=== PATIENT | male | born 1955 | race Caucasian/White ===

== ENCOUNTER 2017-12-02 09:25 | Inpatient (IN) | payer BC ==
[2017-12-02 09:31] VITALS: BMI 34.7
[2017-12-02 10:33] LABS: BASO % 0.7 % (0.0-2.0); EOS # 0.1 K/uL (0.0-0.7); EOS % 2.4 % (0.0-4.0); HEMOGLOBIN 15.3 g/dL (12.0-18.0); LYMPH % 16.7 % (20.0-40.0); MEAN CORPUSCULAR HEMOGLOBIN 31.9 pg (27.0-31.0); MEAN CORPUSCULAR HGB CONC 34.7 g/dL (33.0-37.0); MEAN PLATELET VOLUME 7.7 fl (7.2-11.7); MONO # 0.3 K/uL (0.0-0.8); MONO % 5.4 % (0.0-10.0); NEUT # 4.5 K/uL (1.8-7.0); NEUT % 74.8 % (50.0-75.0); NRBC % 0.2 % (0.0-0.0); RBC 4.8 Mil/uL (4.40-5.90); RED CELL DISTRIBUTION WIDTH 12.6 % (11.5-14.5); WHITE BLOOD COUNT 6.1 K/uL (4.8-10.8)
--- NOTE | 2017-12-02 10:38 | ED PDOC ---
HPI: General Adult Time Seen by Provider: 12/02/17 09:43 Chief Complaint (Nursing): Dizziness/Lightheaded Chief Complaint (Provider): Dizziness, Vomiting History Per: Patient History/Exam Limitations: no limitations Onset/Duration Of Symptoms: Hrs (x 6) Current Symptoms Are (Timing): Still Present Additional Complaint(s): Howard is a 62 y/o male with a history of vertigo, hypertension, and CAD who presents to the ED complaining of dizziness and vomiting that started at 4am today. Patient reports continuous dizziness which he describes as a spinning sensation that is worse when moving his head, getting up, and walking. He denies passing out, chest pain, palpitations, or headache. Patient also complains of nausea and vomiting "phlegm" a few times. He denies numbness, weakness, speech change, or problems with gait. PMD: Yaya Bernardo NIHSS Stroke Scale - Date/Time Evaluation Performed Date Performed: 12/02/17 When Was NIHSS Performed: Baseline - How Severe is the Stroke Level of Consciousness: 0=Alert LOC to Questions: 0=Both comments correct LOC to commands: 0=Obeys both correctly Best Gaze: 0=Normal Visual: 0=No visual loss Facial: 0=Normal Motor Arm - Left: 0=No drift Motor Arm - Right: 0=No drift Motor Leg - Left: 0=No drift Motor Leg - Right: 0=No drift Limb Ataxia: 0=Absent Sensory: 0=Normal Best Language: 0=No aphasia Dysarthia: 0=Normal articulation Extinction & Inattention (Neglect): 0=Normal, no object Score: 0 rTPA Inclusion/Exclusion - Refusal of Treatment Patient Refused Treatment: No - Inclusion Criteria for Altepase Patient is 18 years or Older: Yes The Clinical Diagnosis of Ischemic Stroke That is Causing a Potentially Disabling Neurological Deficit: No Time of Onset is Well Established to be Less Than 270 Minute Before Treatment Would Begin: No Risk/Benefit Discussed With Patient/Family Member Present: No Past Medical History Reviewed: Historical Data, Nursing Documentation, Vital Signs Vital Signs: Last Vital Signs Temp 97.8 F 12/02/17 15:18 Pulse 55 L 12/02/17 15:18 Resp 18 12/02/17 15:18 BP 132/71 12/02/17 15:18 Pulse Ox 100 12/02/17 15:18 - Medical History PMH: HTN, Hypercholesterolemia, Hypothyroidism Denies: Chronic Kidney Disease Other PMH: Vertigo - Surgical History Surgical History: Coronary Stent (x 2) Denies: Pacemaker - Family History Family History: States: Unknown Family Hx - Immunization History Hx Tetanus Toxoid Vaccination: No Hx Influenza Vaccination: No Hx Pneumococcal Vaccination: No - Home Medications Home Medications: Ambulatory Orders Medication Instructions Recorded Amlodipine Bes/Olmesartan Med 1 tab PO DAILY 12/02/17 [William 5-40 mg Tablet] Aspirin [Ecotrin] 81 mg PO DAILY 12/02/17 Atorvastatin [Lipitor] 20 mg PO HS 12/02/17 Icosapent Ethyl [Vascepa] 1 gm PO Q12 12/02/17 Levothyroxine [Synthroid] 150 mcg PO DAILY 12/02/17 Nebivolol [Bystolic] 10 mg PO DAILY 12/02/17 - Allergies Allergies/Adverse Reactions: Allergies Allergy/AdvReac Type Severity Reaction Status Date / Time No Known Allergies Allergy Verified 07/27/14 10:57 Review of Systems ROS Statement: Except As Marked, All Systems Reviewed And Found Negative ENT: Positive for: Other (congested sensation in left ear, (-) tenitis). Negative for: Ear Pain Cardiovascular: Negative for: Chest Pain, Palpitations Gastrointestinal: Positive for: Nausea, Vomiting Neurological: Positive for: Dizziness. Negative for: Weakness, Numbness, Incoordination, Change in Speech, Headache, Other (loss of consciousness) Physical Exam - Reviewed Nursing Documentation Reviewed: Yes Vital Signs Reviewed: Yes - Physical Exam Appears: Positive for: Uncomfortable Head Exam: Positive for: ATRAUMATIC, NORMAL INSPECTION, NORMOCEPHALIC Skin: Positive for: Normal Color, Warm, Dry. Negative for: Rash Eye Exam: Positive for: Normal appearance, EOMI, PERRL, Nystagmus ((+) horizontal, (-) vertical) ENT: Positive for: Normal ENT Inspection Neck: Positive for: Normal, Painless ROM, Supple Cardiovascular/Chest: Positive for: Regular Rate, Rhythm. Negative for: Murmur Respiratory: Positive for: Normal Breath Sounds. Negative for: Respiratory Distress Gastrointestinal/Abdominal: Positive for: Normal Exam, Soft. Negative for: Tenderness Back: Positive for: Normal Inspection. Negative for: L CVA Tenderness, R CVA Tenderness, Vertebral Tenderness Extremity: Positive for: Normal ROM. Negative for: Pedal Edema, Deformity Neurologic/Psych: Positive for: Alert, Oriented. Negative for: Motor/Sensory Deficits - Laboratory Results Result Diagrams: 12/02/17 10:24 12/02/17 10:24 - ECG O2 Sat by Pulse Oximetry: 96 (RA) Pulse Ox Interpretation: Normal Medical Decision Making Medical Decision Making: Time: 10:03 Initial Impression: Dizziness; Differentials include but not limited to peripheral vertigo such as BPV, vestibular neuritis, central vertigo such as cerebellar vertigo, CVA less likely Initial Plan: --CT Head w/o Contrast --EKG --BMP --Troponin --CBC --Antivert --Zofran Time: 11:25 CT HEAD FINDINGS: HEMORRHAGE: No intracranial hemorrhage. BRAIN: Good corticomedullary differentiation is seen. Trace diffuse expansion of the ventriculosulcal and cisternal spaces is appreciated with white matter lucency compatible with diffuse cerebral atrophy and chronic microangiopathy. No suspicious extra-axial fluid collection is identified and the midline brain anatomy appears grossly nonfocal as imaged. There is no mass effect throughout. VENTRICLES: Unremarkable. No hydrocephalus. CALVARIUM: Unremarkable. PARANASAL SINUSES: Unremarkable as visualized. No significant inflammatory changes. MASTOID AIR CELLS: Unremarkable as visualized. No inflammatory changes. OTHER FINDINGS: None. IMPRESSION: Minimal age related neuro degenerative changes are appreciated without definite acute intracranial findings by standard CT criteria. Follow-up CT or MRI are available as clinically warranted. Time: 12:24 --Consulted with Dr. Alvarenga, neurologist recreation therapist, who recommends MRI of the brain. Patient will be admitted to [facility] for persistent vertigo to Dr. Figueroa. Scribe Attestation: Documented by Jarvis Foster, acting as a scribe for Dr. Luis Miguel Dwyer MD. Provider Scribe Attestation: All medical record entries made by the Scribe were at my direction and personally dictated by me. I have reviewed the chart and agree that the record accurately reflects my personal performance of the history, physical exam, medical decision making, and the department course for this patient. I have also personally directed, reviewed, and agree with the discharge instructions and disposition. Disposition - Clinical Impression Clinical Impression: Vertigo - Patient ED Disposition Is Patient to be Admitted: Yes Discussed With : Karel Figueroa Doctor Will See Patient In The: Hospital Counseled Patient/Family Regarding: Studies Performed, Diagnosis - Disposition Disposition Time: 12:24 Condition: FAIR - Pt Status Changed To: Hospital Disposition Of: Observation - POA Present On Arrival: None
[2017-12-02 10:41] LABS: BLOOD UREA NITROGEN 23 mg/dl (9-20); GFR AFRICAN-AMERICAN > 60; GFR NON-AFRICAN AMERICAN > 60
--- NOTE | 2017-12-02 11:26 | CT ---
PROCEDURE: CT HEAD WITHOUT CONTRAST. HISTORY: dizziness COMPARISON: None available. TECHNIQUE: Axial computed tomography images were obtained through the head/brain without intravenous contrast. Radiation dose: Total exam DLP = 967.53 mGy-cm. This CT exam was performed using one or more of the following dose reduction techniques: Automated exposure control, adjustment of the mA and/or kV according to patient size, and/or use of iterative reconstruction technique. FINDINGS: HEMORRHAGE: No intracranial hemorrhage. BRAIN: Good corticomedullary differentiation is seen. Trace diffuse expansion of the ventriculosulcal and cisternal spaces is appreciated with white matter lucency compatible with diffuse cerebral atrophy and chronic microangiopathy. No suspicious extra-axial fluid collection is identified and the midline brain anatomy appears grossly nonfocal as imaged. There is no mass effect throughout. VENTRICLES: Unremarkable. No hydrocephalus. CALVARIUM: Unremarkable. PARANASAL SINUSES: Unremarkable as visualized. No significant inflammatory changes. MASTOID AIR CELLS: Unremarkable as visualized. No inflammatory changes. OTHER FINDINGS: None. IMPRESSION: Minimal age related neuro degenerative changes are appreciated without definite acute intracranial findings by standard CT criteria. Follow-up CT or MRI are available as clinically warranted.
--- NOTE | 2017-12-02 11:59 | CARD ---
APPROVED REPORT EKG Measurement Heart [id number] <Conclusion> Sinus bradycardia Otherwise normal ECG
--- NOTE | 2017-12-02 15:29 | MRI ---
PROCEDURE: MRI BRAIN WITHOUT CONTRAST HISTORY: dizziness COMPARISON: Unenhanced head CT 12/02/2017. TECHNIQUE: Multiplanar, multisequence MR images of the brain were obtained without intravenous contrast enhancement. FINDINGS: HEMORRHAGE: None DWI: No evidence of an acute or early subacute infarction. BRAIN PARENCHYMA: A chronic lacune is seen in the right caudate head is superiorly. Good corticomedullary differentiation is seen. Diffuse expansion of the ventriculosulcal and cisternal spaces is appreciated with white matter signal changes compatible with diffuse cerebral atrophy and chronic microangiopathy. No suspicious extra-axial fluid collection is identified and the midline brain anatomy appears grossly nonfocal as imaged. There is no mass effect throughout. VENTRICLES: Unremarkable. No hydrocephalus. CRANIUM: Unremarkable. ORBITS: Grossly unremarkable. PARANASAL SINUSES/MASTOIDS: Clear VASCULAR SYSTEM: Skull base flow voids intact. OTHER FINDINGS: None. IMPRESSION: No definitive acute intracranial findings as discussed above. Mild age related neuro degenerative changes are reiterated as well as a chronic lacune right caudate head as discussed above.
--- NOTE | 2017-12-02 15:36 | MRI ---
PROCEDURE: Magnetic Resonance Angiography Brain HISTORY: dizziness COMPARISON: None available. TECHNIQUE: 3D time of flight MR angiography of the intracranial arteries was performed. Rotating maximum intensity projection images were generated. FINDINGS: INTERNAL CAROTID ARTERIES: Unremarkable. The skull base, petrous, cavernous and supraclinoid segments are bilaterally widely patient. ANTERIOR CEREBRAL ARTERIES: Unremarkable. A1 and A2 segments are widely patent. Smaller distal branches unremarkable, as visualized. MIDDLE CEREBRAL ARTERIES: Unremarkable. M1 and M2 segments are widely patent. Perisylvian branches grossly symmetric. POSTERIOR CIRCULATION: Basilar Artery: Robust blood flow is appreciated including through the bilateral posterior cerebral arteries. Distal Vertebral Arteries: Hypoplastic distal right vertebral artery suspected though congenital absence or even occlusion is not completely excluded but not favored either. Posterior Cerebral Arteries: Unremarkable. Posterior Inferior Cerebellar Arteries: Unremarkable. ANEURYSM/ VASCULAR MALFORMATIONS: None. OTHER FINDINGS: None. 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 Examination otherwise unremarkable.
[2017-12-02] MEDS ORDERED: Pneumococcal 23-Valent Vaccine IM ONE (15:40)
[2017-12-02] MEDS ORDERED: Influenza Vaccine 18yr & older 0.5 ML/45 MCG SYR IM ONE (15:41)
--- NOTE | 2017-12-02 16:03 | MRI ---
PROCEDURE: MR Angiography of the neck without contrast HISTORY: dizziness COMPARISON: None available. TECHNIQUE: 3D [id number] angiography of the neck was performed. Rotating maximum intensity projection images of the cervical carotid and vertebral arteries were generated. The origins of the common carotid arteries were not visualized, which is a limitation inherent to the non-contrast time of flight technique. FINDINGS: RIGHT CAROTID ARTERIES: Common Carotid Artery: Normal. Carotid Bifurcation: Prominent atherosclerotic plaque identified Internal Carotid Artery:70-80 percent stenosis proximal right ICA in a short segment beginning at the origin. External Carotid Artery (proximal branches): Normal. LEFT CAROTID ARTERIES: Common Carotid Artery: Normal. Carotid Bifurcation: Normal. Internal Carotid Artery:Normal. External Carotid Artery (proximal branches): Normal. VERTEBRAL ARTERIES: Right Vertebral Artery: Hypoplastic distal right vertebral artery segment noted to the junction with the basilar artery. Left Vertebral Artery: Normal. OTHER FINDINGS: None. IMPRESSION: High-grade stenosis proximal right ICA suspected in a short segment beginning at the origin. No significant left ICA or bilateral CCA stenosis. Hypoplastic distal right vertebral artery.
--- NOTE | 2017-12-02 19:48 | CP.PCM.CON ---
History of Present Illness - History of Present Illness History of Present Illness: 62 yr old male with new onset dizziness and discomfort since 4 am, who has a history of htn, no pmh of stroke or cardiac disease. is turkish speaking only and his translated. He denies headache, weakness, ataxia. PMH/PSH: as above FH/SH: . no tobacco, no etoh All: nkda on exam: AAOx3. eomi. cn 2-12 normal. nystagmus in all directions. vff. cn 2-12 normal.motor: strength normal. gait: couldnot perform tandem gait. +2 dtr ul and ll bl. no clear ataxia. Past Patient History - Past Medical History & Family History Past Medical History?: Yes - Past Social History Smoking Status: Light Smoker < 10 Cigarettes Daily - CARDIAC Hx Hypercholesterolemia: Yes Hx Hypertension: Yes Hx Pacemaker: No - PULMONARY Hx Respiratory Disorders: No - NEUROLOGICAL Hx Paralysis: No - HEENT Hx HEENT Problems: No - RENAL Hx Chronic Kidney Disease: No - ENDOCRINE/METABOLIC Hx Hypothyroidism: Yes - HEMATOLOGICAL/ONCOLOGICAL Hx Blood Transfusions: No Hx Blood Transfusion Reaction: No - INTEGUMENTARY Hx Dermatological Problems: No - MUSCULOSKELETAL/RHEUMATOLOGICAL Hx Musculoskeletal Disorders: No - GASTROINTESTINAL Hx Gastrointestinal Disorders: No - GENITOURINARY/GYNECOLOGICAL Hx Genitourinary Disorders: No - PSYCHIATRIC Hx Emotional Abuse: No Hx Physical Abuse: No Hx Substance Use: No - SURGICAL HISTORY Hx Coronary Stent: Yes (x 2) - ANESTHESIA Hx Anesthesia Reactions: No Hx Malignant Hyperthermia: No Meds Allergies/Adverse Reactions: Allergies Allergy/AdvReac Type Severity Reaction Status Date / Time No Known Allergies Allergy Verified 07/27/14 10:57 Results - Vital Signs Recent Vital Signs: Last Vital Signs Temp 97.8 F 12/02/17 09:31 Pulse 53 L 12/02/17 09:31 Resp 16 12/02/17 09:31 BP 159/85 H 12/02/17 09:31 Pulse Ox 96 12/02/17 12:26 - Labs Result Diagrams: 12/02/17 10:24 12/02/17 10:24 Labs: Laboratory Results - last 24 hr 12/02/17 12/02/17 12/02/17 10:02 10:24 10:24 WBC 6.1 RBC 4.80 Hgb 15.3 Hct 44.2 MCV 92.0 MCH 31.9 H MCHC 34.7 RDW 12.6 Plt Count 182 MPV 7.7 Neut % (Auto) 74.8 Lymph % (Auto) 16.7 L [place] % (Auto) 5.4 Eos % (Auto) 2.4 Baso % (Auto) 0.7 Neut # (Auto) 4.5 Lymph # (Auto) 1.0 [place] # (Auto) 0.3 Eos # (Auto) 0.1 Baso # (Auto) 0.0 Sodium 140 Potassium 4.0 Chloride 104 Carbon Dioxide 26 Anion Gap 14 BUN 23 H Creatinine 0.8 Est GFR ( Amer) > 60 Est GFR (Non-Af Amer) > 60 POC Glucose (mg/dL) 121 H Random Glucose 142 H Calcium 9.0 Troponin I < 0.0120 - Imaging and Cardiology CT scan - head Status: Image reviewed by me, Report reviewed by me (ct heaD normal, cta normal ) Assessment & Plan - Assessment and Plan (Free Text) Assessment: 62 yr old male with some subtle sign of cerebellar dysfunction, differential of middle ear infection. I will order MRI MRA brain and admit to telemetry.
[2017-12-02] MEDS ORDERED: Iodixanol 320 MG/ML 100 ML BOTTLE IV ONE (21:34)
[2017-12-02] MEDS ORDERED: Sodium Chloride 0.9% 100 ML ONE (21:34)
--- NOTE | 2017-12-02 23:23 | CT ---
EXAM: CT Angiography Head With Intravenous Contrast CLINICAL HISTORY: 62 years old, male; Signs and symptoms; Vertigo and other: Syncope TECHNIQUE: Axial computed tomographic angiography images of the head with intravenous contrast using CT angiography protocol. All CT scans at this facility use one or more dose reduction techniques, viz.: automated exposure control; ma/kV adjustment per patient size (including targeted exams where dose is matched to indication; i.e. head); or iterative reconstruction technique. MIP reconstructed images were created and reviewed. Coronal and sagittal reformatted images were created and reviewed. CONTRAST: 90 mL of [id number] administered intravenously. COMPARISON: No relevant prior studies available. FINDINGS: A dominant left vertebral artery is present. There is hypoplasia /stenosis of the distal right vertebral artery without evidence of occlusion. [place] of the vertebral arteries to form the basilar artery is noted on series 2 image 103. The basilar artery is patent. The posterior cerebral arteries are patent. Right internal carotid artery: No acute findings. Intracranial segment is patent with no significant stenosis. No aneurysm. Right anterior cerebral artery: Unremarkable. No occlusion or significant stenosis. No aneurysm. Right middle cerebral artery: Unremarkable. No occlusion or significant stenosis. No aneurysm. Left internal carotid artery: No acute findings. Intracranial segment is patent with no significant stenosis. No aneurysm. Left anterior cerebral artery: Unremarkable. No occlusion or significant stenosis. No aneurysm. Left middle cerebral artery: Unremarkable. No occlusion or significant stenosis. No aneurysm. IMPRESSION: No acute findings. EXAM: CT Angiography Neck With Intravenous Contrast EXAM DATE/TIME: 12/02/2017 7:11 PM CLINICAL HISTORY: 62 years old, male; Signs and symptoms; Vertigo and other: Syncope TECHNIQUE: Axial computed tomographic angiography images of the neck with intravenous contrast using CT angiography protocol. All CT scans at this facility use one or more dose reduction techniques, viz.: automated exposure control; ma/kV adjustment per patient size (including targeted exams where dose is matched to indication; i.e. head); or iterative reconstruction technique. MIP reconstructed images were created and reviewed. Coronal and sagittal reformatted images were created and reviewed. CONTRAST: 90 mL of [id number] administered intravenously. COMPARISON: CT - HEAD W/O CONTRAST 2017-12-02 11:02 FINDINGS: There are atherosclerotic changes of the aortic arch. A dominant left vertebral artery is present. The right vertebral artery is decreased in caliber with respect to the left however there is no occlusion. Mild stenosis of the very distal right common carotid artery at the bifurcation. High-grade stenosis of a very short, 3 mm segment of the right internal carotid artery at its origin (coronal series 605 image 92). The right internal carotid artery is well-perfused distal to the very short segment of stenosis. No significant stenosis or occlusion of the left common carotid artery or left internal carotid artery. IMPRESSION: Stenosis of the distal right common carotid artery/proximal right internal carotid artery as described in detail above. No vascular occlusion.
[2017-12-03 06:07] LABS: T4 6.85 ug/dl (5.5-11.0)
[2017-12-03] MEDS ORDERED: Levothyroxine 150 MCG TAB PO SCH (06:30)
[2017-12-03] MEDS ORDERED: Enoxaparin 40 mg Syringe SC SCH (09:00)
--- NOTE | 2017-12-03 09:36 | CARD ---
APPROVED REPORT EKG Measurement Heart [id number] AK [id number] <Conclusion> Sinus bradycardia Otherwise normal ECG
--- NOTE | 2017-12-03 10:59 | CP.PCM.PN ---
Subjective - Date & Time of Evaluation Date of Evaluation: 12/03/17 Time of Evaluation: 10:49 - Subjective Subjective: Mr. Real was seen and examined at the bedside. He is alert oriented in all spheres. He denies any headache, blurred vision, diplopia. He claims of minimal dizziness with no nystagmus noted. He further states of feeling dizzy with movement of his head from [id number]. He is able to follow simple commands and answer questions appropriately. CTA of the head and neck showed no acute findings in the head, with stenosis ( high grade 3 mm segment in length) of the distal right common carotid artery/ proximal right ICA, no vascular occlusion. MRA of the neck showed high grade stenosis proximal right ICA proximal right ICA suspected in a short segment beginning at the origin. No significant left ICA of samy. CCA stenosis. Hypoplastic distal right RVA. MRA of the head showed hypoplasia distal RVA with robust blood flow appreciated through the basilar and samy. posterior arteries in the LVA distally. MRI of the brain showed no definitive intracranial findings. Mild age-related neurodegenerative changes as well as chronic lacune right caudate head. There was no untoward events overnight. Objective - Vital Signs/Intake and Output Vital Signs (last 24 hours): Temp Pulse Resp BP Pulse Ox 98.1 F 51 L 18 147/77 95 12/03/17 08:00 12/03/17 09:00 12/03/17 08:00 12/03/17 08:00 12/03/17 08:00 - Medications Medications: Current Medications Aspirin (Ecotrin) 81 mg PO DAILY [facility] Last Admin: 12/03/17 08:31 Dose: 81 mg Atorvastatin Calcium (Lipitor) 20 mg PO [facility] Enoxaparin Sodium (Lovenox) 40 mg SC DAILY [facility] PRN Reason: Protocol Last Admin: 12/03/17 08:35 Dose: 40 mg Levothyroxine Sodium (Synthroid) 150 mcg PO DAILY@0630 [facility] Last Admin: 12/03/17 08:31 Dose: 150 mcg Meclizine HCl (Antivert) 25 mg PO BID [facility] Last Admin: 12/03/17 08:31 Dose: 25 mg Metoprolol Tartrate (Lopressor) 50 mg PO DAILY [facility] Last Admin: 12/03/17 08:35 Dose: Not Given - Labs Labs: 12/02/17 10:24 12/02/17 10:24 - Constitutional Appears: No Acute Distress - Head Exam Head Exam: NORMAL INSPECTION - Neurological Exam Neurological Exam: Alert, Awake, Oriented x3 Neuro motor strength exam: Left Upper Extremity: 5, Right Upper Extremity: 5, Left Lower Extremity: 5, Right Lower Extremity: 5 Additional comments: He is alert, oriented in all spheres. He is able to follow simple commands. Sensation remains intact. Assessment and Plan (1) Carotid artery disease Assessment & Plan: Case discussed with Dr. Alvarenga, recommend for a neurointerventionalist consult ( Dr. Jean-Claude Hebert was notified). for evaluation of the right ICA. Status: Acute (2) Vertigo Assessment & Plan: Case discussed with Dr. Alvarenga, continue all current medical regimen. Recommend vestibular rehab.and echocardiogram. Status: Acute
[2017-12-03 13:15] LABS: ALB/GLOB RATIO 1.3 (1.0-2.1); ALBUMIN 3.6 g/dL (3.5-5.0); ALT/SGPT 40 U/L (21-72); AST/SGOT 50 U/L (17-59); BLOOD UREA NITROGEN 24 mg/dl (9-20); CALCIUM 9.1 mg/dL (8.4-10.2); GFR AFRICAN-AMERICAN > 60; GFR NON-AFRICAN AMERICAN > 60
[2017-12-03] MEDS ORDERED: Perflutren Lipid Microsphere 1.5 ML SUS IV ONE (13:30)
[2017-12-03 13:45] LABS: T3 0.883 nmol/L (1.49-2.60)
[2017-12-03 15:55] VITALS: BP 116/71; RESP 16; TEMP 98.6; O2SAT 95
[2017-12-03 16:46] VITALS: PULSE 54
--- NOTE | 2017-12-03 17:47 | CP.PCM.CON ---
Past Patient History - Past Medical History & Family History Past Medical History?: Yes - Past Social History Smoking Status: Light Smoker < 10 Cigarettes Daily - CARDIAC Hx Hypercholesterolemia: Yes Hx Hypertension: Yes - PULMONARY Hx Respiratory Disorders: No - NEUROLOGICAL Hx Paralysis: No - HEENT Hx HEENT Problems: No - RENAL Hx Chronic Kidney Disease: No - ENDOCRINE/METABOLIC Hx Hypothyroidism: Yes - HEMATOLOGICAL/ONCOLOGICAL Hx Blood Transfusions: No Hx Blood Transfusion Reaction: No - INTEGUMENTARY Hx Dermatological Problems: No - MUSCULOSKELETAL/RHEUMATOLOGICAL Hx Musculoskeletal Disorders: No - GASTROINTESTINAL Hx Gastrointestinal Disorders: No - GENITOURINARY/GYNECOLOGICAL Hx Genitourinary Disorders: No - PSYCHIATRIC Hx Emotional Abuse: No Hx Physical Abuse: No Hx Substance Use: No - SURGICAL HISTORY Hx Coronary Stent: Yes (x 2) - ANESTHESIA Hx Anesthesia Reactions: No Hx Malignant Hyperthermia: No Meds Allergies/Adverse Reactions: Allergies Allergy/AdvReac Type Severity Reaction Status Date / Time No Known Allergies Allergy Verified 07/27/14 10:57 - Medications Medications: Current Medications Aspirin (Ecotrin) 81 mg PO DAILY [facility] Last Admin: 12/03/17 08:31 Dose: 81 mg Atorvastatin Calcium (Lipitor) 80 mg PO [facility] Enoxaparin Sodium (Lovenox) 40 mg SC DAILY [facility] PRN Reason: Protocol Last Admin: 12/03/17 08:35 Dose: 40 mg Levothyroxine Sodium (Synthroid) 150 mcg PO DAILY@0630 [facility] Last Admin: 12/03/17 08:31 Dose: 150 mcg Meclizine HCl (Antivert) 25 mg PO BID [facility] Last Admin: 12/03/17 16:54 Dose: 25 mg Metoprolol Tartrate (Lopressor) 50 mg PO DAILY [facility] Last Admin: 12/03/17 08:35 Dose: Not Given Results - Vital Signs Recent Vital Signs: Last Vital Signs Temp 98.6 F 12/03/17 15:54 Pulse 54 L 12/03/17 16:36 Resp 16 12/03/17 15:54 BP 116/71 12/03/17 15:54 Pulse Ox 95 12/03/17 15:54 - Labs Result Diagrams: 12/02/17 10:24 12/03/17 12:42 Labs: Laboratory Results - last 24 hr 12/02/17 12/03/17 12/03/17 17:01 01:00 05:00 Sodium Potassium Chloride Carbon Dioxide Anion Gap BUN Creatinine Est GFR ( Amer) Est GFR (Non-Af Amer) Random Glucose Calcium Total Bilirubin AST ALT Alkaline Phosphatase Troponin I < 0.0120 < 0.0120 Total Protein Albumin Globulin Albumin/Globulin Ratio Triglycerides 226 H Cholesterol 224 H LDL Cholesterol Direct 154 H HDL Cholesterol 28 L Thyroxine (T4) 6.85 Total T3 TSH 3rd Generation 2.75 12/03/17 12:42 Sodium 142 Potassium 4.2 Chloride 103 Carbon Dioxide 22 Anion Gap 21 H BUN 24 H Creatinine 1.0 Est GFR ( Amer) > 60 Est GFR (Non-Af Amer) > 60 Random Glucose 97 Calcium 9.1 Total Bilirubin 0.5 AST 50 ALT 40 Alkaline Phosphatase 43 Troponin I Total Protein 6.4 Albumin 3.6 Globulin 2.8 Albumin/Globulin Ratio 1.3 Triglycerides Cholesterol LDL Cholesterol Direct HDL Cholesterol Thyroxine (T4) Total T3 0.883 L TSH 3rd Generation Assessment & Plan (1) Dyslipidemia Status: Acute (2) Carotid artery disease Status: Acute (3) Vertigo Status: Acute (4) CAD (coronary artery disease) Status: Acute (5) HTN (hypertension) Status: Acute - Assessment and Plan (Free Text) Plan: symptoms c/w inner ear vertigo. symptoms resolved. tele shows sb on metoprolol and low total t3. per pt his synthroid was increased 1 week ago. will keep synthroid dose the same. per rn neuro and vascular feel pt should be treated medically. i would add plavix to asa, cont metoprolol, discharge on crestor 10. Will d/w dr mejia as outpt any possible interventions.
--- NOTE | 2017-12-04 07:21 | HP ---
HISTORY OF PRESENT ILLNESS: Mr. Real is a 62-year-old male who was admitted via the Emergency Room because of complaints of dizziness. These started at about 4:00 a.m. on the day of admission. He was sent to the Emergency Room and had what appeared to be intractable vertigo and was given IV Zofran. Symptoms improved, but again worsened while he was on the medical floor. PAST MEDICAL HISTORY: He has a past medical history of hypertension, stroke on cardiac disease, status post cardiac stent placement. FAMILY HISTORY: Noncontributory. SOCIAL HISTORY: Socially, he still smokes a cigarette two daily. Does not drink alcohol. Does not use drugs. REVIEW OF SYSTEMS: Essentially unremarkable. PHYSICAL EXAMINATION: GENERAL: The patient is alert, oriented, and appears to be in mild distress because of dizziness especially when he gets up out of bed. VITAL SIGNS: Remarkable for blood pressure of 128/85 with the pulse of 50, and respiratory rate of 18. He is afebrile and O2 sat 94% on room air. SKIN: Shows fair turgor. HEENT: Pupils are equal and reactive to light and accommodation. JVP is flat. LUNGS: Clear. HEART: Regular, but bradycardic. ABDOMEN: Soft and nontender. No organomegaly. EXTREMITIES: Shows no edema or cyanosis. CENTRAL NERVOUS SYSTEM: Remarkable for dizziness with unsteadiness on gait. LABORATORY DATA: Remarkable for WBC of 6.1, hemoglobin of 15.2, and platelet count 182,000. Sodium 140, potassium 4.0, BUN 23, creatinine 0.9, and serum glucose 142. Karel Figueroa MD
--- NOTE | 2017-12-04 11:09 | PQF GENQUE ---
Dr. Figueroa pt was admitted with a diagnosis of dizziness. If known what is the source or cause? This form is a permanent part of the medical record Clarification of your documentation is requested to better reflect the severity of illness and intensity of treatment of your patient. Indicators present [] Specify: [] [] Specify: [] [] Specify: [] [] Specify: [] Location in the medical record that reflects the above clinical findings: [] Treatment Provided: [] PHYSICIAN'S RESPONSE Based on your medical judgment of the clinical indicators outlined above please clarify the following: [x] Practitioner response SEVERE INTRACTABLE DIZZINESS DUE TO CAROTID ARTEROSCLEROSIS [] If unable to determine, please check the box, sign and date. Present On Admission (POA) Indicator: [] Present at the time of admission [] Not present at the time of admission [] Clinically Undetermined In responding to this query, please exercise your independent professional judgment. The fact that a question is asked does not imply that any particular answer is desired or expected. Thank you for your clarification on this documentation. If you have any questions please call:[ ] * Thank you, [ ]Em Murray [employer] founder & ceo [employer]
--- NOTE | 2017-12-04 11:42 | CARD ---
APPROVED REPORT EXAM: Two-dimensional and M-mode echocardiogram with Doppler, color Doppler with contrast. Other Information Quality : AverageRhythm : NSR INDICATION Dizziness and Vertigo Echo Enhancing Agent Indication: Endocardial border delineation Agent/Amount Used: Definity Surgery/Intervention Status/Post Intervention: Stent 2D DIMENSIONS IVSd1.56 (0.7-1.1cm)LVDd3.38 (3.9-5.9cm) LVOT Diameter2.38 (1.8-2.4cm)PWd1.23 (0.7-1.1cm) IVSs1.71 (0.8-1.2cm)LVDs2.42 (2.5-4.0cm) FS (%) 28.5 %PWs1.52 (0.8-1.2cm) M-Mode DIMENSIONS Left Atrium (MM)5.23 (2.5-4.0cm)IVSd1.09 (0.7-1.1cm) Aortic Root3.21 (2.2-3.7cm)LVDd5.53 (4.0-5.6cm) Aortic Cusp Exc.1.89 (1.5-2.0cm)PWd1.22 (0.7-1.1cm) IVSs1.65 cmFS (%) 39 % LVDs3.38 (2.0-3.8cm)PWs1.56 cm Mitral Valve MV E Ayjkjblk59.1cm/sMV DECEL [id number] A Jmmybjem00.3cm/s MV [id number] ratio1.0MVA (PHT)3.03cm2 TDI Lateral E' Peak V6.19cm/sMedial E' Peak V5.95cm/sE/Lateral E'13.3 E/Medial E'13.8 LEFT VENTRICLE The left ventricle is normal size. There is normal left ventricular wall thickness. Left ventricle systolic function is normal. The Ejection Fraction is 65-70%. There is normal LV segmental wall motion. Transmitral Doppler flow pattern is Grade I-abnormal relaxation pattern. RIGHT VENTRICLE The right ventricle is normal size. There is normal right ventricular wall thickness. The right ventricular systolic function is normal. ATRIA The left atrium size is normal. The right atrium size is normal. AORTIC VALVE The aortic valve is normal in structure. No aortic regurgitation is present. There is no aortic valvular stenosis. MITRAL VALVE The mitral valve is normal in structure. There is no evidence of mitral valve prolapse. There is no mitral valve stenosis. There is no mitral valve regurgitation noted. TRICUSPID VALVE The tricuspid valve is normal in structure. There is no tricuspid valve regurgitation noted. PULMONIC VALVE The pulmonary valve is normal in structure. There is no pulmonic valvular regurgitation. GREAT VESSELS The aortic root is normal in size. Due to poor image quality, the IVC could not be assessed. PERICARDIAL EFFUSION The pericardium appears normal. <Conclusion> The pt was given echo contrast for identifying endocardial surface and LV regional wall motion. The left ventricle is normal size. There is normal left ventricular wall thickness. There is normal LV segmental wall motion. Left ventricle systolic function is normal. The Ejection Fraction is 65-70%. Transmitral Doppler flow pattern is Grade I-abnormal relaxation pattern.
--- NOTE | 2017-12-04 13:43 | CARD ---
APPROVED REPORT EKG Measurement Heart [id number] <Conclusion> Sinus bradycardia Otherwise normal ECG
--- NOTE | 2017-12-05 10:00 | CP.PCM.DIS ---
Provider - Provider Date of Admission: 12/03/17 12:40 Attending physician: Karel Figueroa MD Time Spent in preparation of Discharge (in minutes): 30 Diagnosis - Discharge Diagnosis (1) CAD (coronary artery disease) Status: Acute (2) Carotid artery disease Status: Acute (3) Dyslipidemia Status: Acute (4) HTN (hypertension) Status: Acute (5) Vertigo Status: Acute Hospital Course - Lab Results Lab Results: Most Recent Lab Values WBC 6.1 K/uL (4.8-10.8) 12/02/17 10:24 RBC 4.80 Mil/uL (4.40-5.90) 12/02/17 10:24 Hgb 15.3 g/dL (12.0-18.0) 12/02/17 10:24 Hct 44.2 % (35.0-51.0) 12/02/17 10:24 MCV 92.0 fl (80.0-94.0) 12/02/17 10:24 MCH 31.9 pg (27.0-31.0) H 12/02/17 10:24 MCHC 34.7 g/dL (33.0-37.0) 12/02/17 10:24 RDW 12.6 % (11.5-14.5) 12/02/17 10:24 Plt Count 182 K/uL (130-400) 12/02/17 10:24 MPV 7.7 fl (7.2-11.7) 12/02/17 10:24 Neut % (Auto) 74.8 % (50.0-75.0) 12/02/17 10:24 Lymph % (Auto) 16.7 % (20.0-40.0) L 12/02/17 10:24 [place]ier % (Auto) 5.4 % (0.0-10.0) 12/02/17 10:24 Eos % (Auto) 2.4 % (0.0-4.0) 12/02/17 10:24 Baso % (Auto) 0.7 % (0.0-2.0) 12/02/17 10:24 Neut # (Auto) 4.5 K/uL (1.8-7.0) 12/02/17 10:24 Lymph # (Auto) 1.0 K/uL (1.0-4.3) 12/02/17 10:24 Lanier # (Auto) 0.3 K/uL (0.0-0.8) 12/02/17 10:24 Eos # (Auto) 0.1 K/uL (0.0-0.7) 12/02/17 10:24 Baso # (Auto) 0.0 K/uL (0.0-0.2) 12/02/17 10:24 Sodium 142 mmol/l (132-148) 12/03/17 12:42 Potassium 4.2 MMOL/L (3.6-5.0) 12/03/17 12:42 Chloride 103 mmol/L (98-107) 12/03/17 12:42 Carbon Dioxide 22 mmol/L (22-30) 12/03/17 12:42 Anion Gap 21 (10-20) H 12/03/17 12:42 BUN 24 mg/dl (9-20) H 12/03/17 12:42 Creatinine 1.0 mg/dl (0.8-1.5) 12/03/17 12:42 Est GFR ( Amer) > 60 12/03/17 12:42 Est GFR (Non-Af Amer) > 60 12/03/17 12:42 POC Glucose (mg/dL) 121 mg/dL (65-110) H 12/02/17 10:02 Random Glucose 97 mg/dL (75-110) 12/03/17 12:42 Calcium 9.1 mg/dL (8.4-10.2) 12/03/17 12:42 Total Bilirubin 0.5 mg/dl (0.2-1.3) 12/03/17 12:42 AST 50 U/L (17-59) 12/03/17 12:42 ALT 40 U/L (21-72) 12/03/17 12:42 Alkaline Phosphatase 43 U/L (38-126) 12/03/17 12:42 Troponin I < 0.0120 ng/mL (0.00-0.120) 12/03/17 01:00 Total Protein 6.4 G/DL (6.3-8.2) 12/03/17 12:42 Albumin 3.6 g/dL (3.5-5.0) 12/03/17 12:42 Globulin 2.8 gm/dL (2.2-3.9) 12/03/17 12:42 Albumin/Globulin Ratio 1.3 (1.0-2.1) 12/03/17 12:42 Triglycerides 226 mg/DL (0-149) H 12/03/17 05:00 Cholesterol 224 mg/dL (0-199) H 12/03/17 05:00 LDL Cholesterol Direct 154 mg/dL (0-129) H 12/03/17 05:00 HDL Cholesterol 28 MG/DL (30-70) L 12/03/17 05:00 Thyroxine (T4) 6.85 ug/dl (5.5-11.0) 12/03/17 05:00 Total T3 0.883 nmol/L (1.49-2.60) L 12/03/17 12:42 TSH 3rd Generation 2.75 mIU/ML (0.46-4.68) 12/03/17 05:00 - Hospital Course Hospital Course: CLINICALLY IMPROVED REFUSED TO STAY IN HOSPITAL AND SIGNED OUT AMA Discharge Exam - Head Exam Head Exam: NORMAL INSPECTION - Eye Exam Eye Exam: EOMI, Normal appearance, PERRL Pupil Exam: NORMAL ACCOMODATION, PERRL - GI/Abdominal Exam GI & Abdominal Exam: Normal Bowel Sounds - Rectal Exam Rectal Exam: NORMAL INSPECTION - Neurological Exam Neurological exam: Alert, CN II-XII Intact, Normal Gait, Oriented x3, Reflexes Normal - Psychiatric Exam Psychiatric exam: Normal Affect, Normal Mood - Skin Skin Exam: Dry, Intact, Normal Color, Warm Discharge Plan - Follow Up Plan Condition: FAIR Disposition: AGAINST MEDICAL ADVICE Additional Instructions: SIGNED OUT AGAINST MEDICAL ADVISE
== END 2017-12-03 20:00 | disposition left against medical advice (07) | DRG 68 ==
LOC: H.ER 09:25 → H.ERHOLD 12:40 → H.TEL 15:26 → OBSVTOIN 12-03 12:40
PROVIDERS: ADMIT Internal Medicine Pulmonary Disease; ATTEND Internal Medicine Pulmonary Disease
DX: I65.21 Occlusion and stenosis of right carotid artery (principal); E03.9 Hypothyroidism, unspecified; E78.00 Pure hypercholesterolemia, unspecified; I10 Essential (primary) hypertension; I25.10 Atherosclerotic heart disease of native coronary artery without angina pectoris; E78.5 Hyperlipidemia, unspecified; Z95.5 Presence of coronary angioplasty implant and graft; F17.210 Nicotine dependence, cigarettes, uncomplicated